=== PATIENT | female | born 1945 | race Caucasian/White ===

== ENCOUNTER 2016-10-20 08:15 | Outpatient (RCR) | payer MEDICARE, OTHER ==
--- NOTE | 2016-09-18 14:39 | PT/OT/ST INITIAL EVALUATION ---
Department of Health and Human Services Form Approved [facility] Care Financing Administration OMB No. [id number] PLAN OF CARE/ASSESSMENT FOR OUTPATIENT REHABILITATION (Complete for Initial Claims Only) 1. PATIENT'S NAME Amberly Lockhart 2. ACC # [id number] [facility]. [facility] [id number] 4. PROVIDER NO. [id number] 5. TYPE: PT 6. PRIOR HOSPITALIZATION NA 7. PRIMARY DX Status post right TKA 8. SECONDARY DX stiffness 9. ONSET DATE 09/11/2016 10. REFERRAL DATE NA 11. SOC. DATE 09/15/2016 12. TIME OF EVAL 8:07 a.m. 12. REFERRING PHYSICIAN 13. CHARGES/UNITS NA 14. G CODES [id number] 15. PRIOR LEVEL OF FUNCTION; PERTINENT HISTORY (Prior therapy results, reason for referral.) S: Prior to therapy the patient did consent to today's evaluation and treatment. The patient is a 71-year-old female referred to physical therapy by Dr. Barone to address status post right TKA. Personal health rating: The patient does rate her overall and general health as good. Description/mechanism of injury: The patient states she had a total knee replacement approximately 6 months ago on the left side due to chronic knee pain. The right knee rapidly deteriorated during this time due to extra stress. The right knee has been bothering her for several years culminating in the need for a knee replacement on that side as well. The patient states surgery was performed on 09/11/2016. The patient states she was initially doing very well with minimal pain in her knee, however, she has been home from the hospital she has had a significant increase in pain throughout the right knee causing her to be able to perform any activities. The patient states she is having difficulty with all movement including lifting her leg. She is unable to ambulate up and down stairs. The patient states this knee "feels different from the left last knee." The patient does state the doctor reported that they found a lot of damage in the knee and had to do extra bony work. The patient does feel that this has caused increased swelling. The patient states she has significant in the back of her right thigh. She is using her pain medication regularly, but this is not significantly helping her. The patient did state that she asked the doctor for less potent medications due to having poor tolerance to Percocet after the last knee. Prior level of function: Includes the patient being able to perform all activities needed of her with pain including a regular workout program at the local gym. Current level of function: Currently the patine tis unable to perform any activities without significant pain. She additionally requires assistance with ADLs and functions and requires an assistive device of a front-wheeled walker to ambulate at this time. Therapy History: Includes PT before leaving the surgery center. Obstacles to delivery of care: Include decreased pain tolerance. Pain level: Maximal pain level is 10/10. The patient describes the pain as an achiness, sharp, burning and generally pain with any movement of the right knee. Aggravating factors: Once again include any movement or use of the right knee. Relieving factors: Include laying in her recliner with her foot propped and icing. Diagnostic testing: No diagnostic tests have been performed since surgery. Past medical history: Does include osteoarthritis and low blood pressure. Current medications: Includes [place]. Patient's Goal: The patient's goal for physical therapy is to decrease pain and back to normal workouts at the gym. 16. INITIAL ASSESSMENT/SAFETY PRECAUTIONS/MEDICAL COMPLICATIONS (Level of function at start of care. Be specific, use objective measures, list problems.) O: APPEARANCE, OBSERVATION AND GAIT: The patient presents as an older female in apparently healthy condition. She is able to perform transitions on her own and she is able to ambulate with a front-wheeled walker using an antalgic gait pattern with increased use of upper extremity to decreased weight through the right knee. PALPATION: With palpation the patient does have increased swelling palpated throughout the left knee, especially under the patella, however, there is no pitting edema present. SPECIAL TESTS: Include approximately 50% decrease in patellar superior and inferior glide currently due to guarding. Circumferential measures were taken 10 cm superior to the joint line, at the joint line, and 10 cm inferior to the joint line. These measurements on the left are 46.5, 41.5 and 40.9 cm respectively. These measurements on the right are 52.3, 48.7 and 45.3 cm respectively. RANGE OF MOTION/FLEXIBILITY: Throughout the right knee is lacking 5 degrees from full extension to 67 degrees of flexion initially. Following today's treatment the patent was lacking 5 degrees of full extension to 77 degrees of flexion with pain reported. Throughout the left knee the patient has full motion of 0 degrees to 133 degrees of flexion. STRENGTH: Throughout the right lower extremity was not tested secondary to pain and guarding. Throughout the left lower extremity grossly 4+/5 throughout. TODAY'S TREATMENT: Following the initial evaluation therapeutic exercise was performed and issued as a home exercise program. The vasopneumatic device with cold and compression was then performed through the right knee. The patient continued to experience pain following today's treatment, but did note a slight decrease. 17. INITIAL POC: (Specify procedures, modalities, short and custodial goals) A: The patient presents to physical therapy with diagnosis status post right TKA with resultant decreased active range of motion, decreased gait, decreased strength, increased pain, increased swelling and decreased activity tolerance. PROGNOSIS: The patient has a good prognosis for increased active range of motion with decreased pain with regular therapy attendance and compliance with prescribed home exercise program. This patient is expected to benefit from physical therapy services in order to have increased active range of motion, increased strength for return to full prior activities. OUTCOME ASSESSMENT: Lower Extremity Functional Index which scored 0/80. INFORMED CONSENT: The diagnosis, prognosis, treatment plan, risks and expected outcomes were discussed with the patient and the patient did agree to today's established plan of care. SHORT TERM GOALS: 1. The patient to be independent and compliant with home exercise program in 1 week. 2. The patient with active range of motion right knee lacking no more than 2 degrees from full extension to 110 degrees of flexion in 3 weeks to allow stair ambulation safely. 3. The patient with active range of motion right knee flexion at least 120 degrees in 5 weeks to allow ambulation without an assistive device for community mobility to be able to grocery shop. 4. The patient with right knee strength 4+/5 for flexibility and extension to allow return to safely working out in 6 weeks. 5. 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 P: Plan to treat the patient 3 times per week for 8 weeks in order to address status post right TKA. Therapeutic treatments to include modalities to decrease pain, inflammation and swelling. Manual therapy techniques as indicated. Therapeutic exercise targeting active range of motion and strengthening, gait training, balance proprioceptive training and patient education in home exercise program to be advanced as warranted. 18. FREQUENCY 3 times per week 19. DURATION 8 weeks 20. FUNCTIONAL LEVEL (End of claim period) 21. PHYSICIAN SIGNATURE ? ON FILE OR ENTER HERE: 22. DATE: I certify the need for these services furnished under this plan of care and if for partial hospitalization. 23. CERTIFICATION FROM [facility]OUGH [facility]
== END 2016-10-23 12:04 | disposition home or self-care (01) ==
LOC: PT 08:15
PROVIDERS: ATTEND Orthopaedic Surgery
DX: Z47.1 Aftercare following joint replacement surgery (principal); Z96.651 Presence of right artificial knee joint; M25.661 Stiffness of right knee, not elsewhere classified
CPT/HCPCS: 97016; 97110; 97112; 97116; 97140; 97161; G8978; G8979